=== PATIENT | male | born 1965 | race Caucasian/White ===

== ENCOUNTER 2017-02-21 17:58 | Emergency (ER) | payer BC ==
[2017-02-21] MEDS ORDERED: Sodium Chloride 0.9% 10 ML Syringe FLUSH PRN (18:22)
[2017-02-21] MEDS ORDERED: Aspirin 81 MG Tab.Chew PO ONE (18:22)
[2017-02-21] MEDS ORDERED: Nitroglycerin 0.4 MG Tab.SL SL ONE (18:23)
--- NOTE | 2017-02-21 18:24 | EDM.PDOC ---
ED HPI GENERAL MEDICAL PROBLEM - General Chief Complaint: Chest Pain Stated Complaint: Chest pain Time Seen by Provider: 02/21/17 18:07 Source of Information: Reports: Patient, RN Notes Reviewed History Limitations: Reports: No Limitations - History of Present Illness INITIAL COMMENTS - FREE TEXT/NARRATIVE: 51 year old male presents to the ED today with complaints of near syncope and chest pain. Symptoms started this morning around 9:30 am. He says got out of his truck and suddenly felt lightheaded and like he may "pass out." He also developed substernal chest pain and tightness. He became diaphoretic and clammy for a short time. He says the lightheadedness has been intermittent since the time of onset. His chest pain has been constant. He describes the pain as someone squeezing or sitting on his chest. The chest pain does not radiate. He has no associated nausea or vomiting. He has no neck, back, or jaw pain. He denies any lower extremity edema, swelling, erythema or calf pain. He did not take any aspirin or other medications prior to arrival. No history of PA. He denies drugs or alcohol. PMH: hypertension, high cholesterol. No history of PA Social history: He drinks alcohol frequently. He says most days he drinks beer. He has never smoked but has been around second hand smoke. Family history: He denies parents or siblings with heart disease or PA. Chest Pain Score (Numeric/FACES): 6 - Related Data Allergies Allergy/AdvReac Type Severity Reaction Status Date / Time No Known Allergies Allergy Verified 02/21/17 18:09 Home Meds: Home Meds Hydrochlorothiazide 25 mg PO DAILY 02/21/17 [History] Lisinopril 40 mg PO DAILY 02/21/17 [History] atorvaSTATin [Lipitor] 10 mg PO DAILY 02/21/17 [History] Past Medical History Cardiovascular History: Reports: Hypertension Social & Family History - Recreational Drug Use Recreational Drug Use: No ED ROS GENERAL - Review of Systems Review Of Systems: See Below Constitutional: Reports: Diaphoresis. Denies: Fever, Chills Respiratory: Reports: No Symptoms. Denies: Shortness of Breath, Pleuritic Chest Pain, Cough Cardiovascular: Reports: Chest Pain, Dyspnea on Exertion, Lightheadedness, Other (Near syncope). Denies: Edema, Palpitations, Syncope GI/Abdominal: Reports: No Symptoms. Denies: Abdominal Pain, Nausea, Vomiting Neurological: Reports: No Symptoms ED EXAM, GENERAL - Physical Exam Exam: See Below Exam Limited By: No Limitations General Appearance: Alert, WD/WN, No Apparent Distress Respiratory/Chest: No Respiratory Distress, Lungs Clear, Normal Breath Sounds, No Accessory Muscle Use, Chest Non-Tender, Other (Pain is not reproducible ) Cardiovascular: Normal Peripheral Pulses, Regular Rate, Rhythm, No Edema, No Murmur GI/Abdominal: Normal Bowel Sounds, Soft, Non-Tender, No Distention Extremities: Normal Inspection, Normal Range of Motion, Non-Tender, No Pedal Edema. No: Tamia's Sign, Increased Warmth, Redness Neurological: Alert, Oriented, Normal Cognition Skin Exam: Warm, Dry, Intact EKG INTERPRETATION EKG Date: 02/21/17 Time: 18:12 Rhythm: NSR Rate (Beats/Min): 65 [place]: Normal P-Wave: Present QRS: Normal ST-T: Normal QT: Normal EKG Interpretation Comments: EKG read by Dr. Cleary. Early repolarization pattern. NO acute ischemic changes. Course - Vital Signs Last Recorded V/S: Last Vital Signs Temp 98.5 F 02/21/17 18:10 Pulse 67 02/21/17 18:10 Resp 15 02/21/17 18:10 BP 117/93 H 02/21/17 18:42 Pulse Ox 98 02/21/17 18:10 - Orders/Labs/Meds Orders: Active Orders 24 hr Category Date Time Status Cardiac Monitoring [RC] . DIRECTED Care 02/21/17 18:22 Active EKG Documentation Completion [RC] ASDIRECTED Care 02/21/17 20:41 Active Peripheral IV Care [RC] . DIRECTED Care 02/21/17 18:23 Active CXR [Chest 1V Frontal] [CR] Stat Exams 02/21/17 18:22 Taken Sodium Chloride 0.9% [Saline Flush] Med 02/21/17 18:22 Active 10 ml FLUSH ASDIRECTED PRN Peripheral IV Insertion Adult [OM.PC] Stat Oth 02/21/17 18:22 Ordered EKG 12 Lead [EK] Stat Ther 02/21/17 20:41 Ordered Medication Orders Sodium Chloride (Saline Flush) 10 ml FLUSH ASDIRECTED PRN PRN Reason: Keep Vein Open Last Admin: 02/21/17 18:42 Dose: 10 ml Labs: Laboratory Tests 02/21/17 02/21/17 02/21/17 Range/Units 18:23 18:23 18:23 WBC 8.55 (4.23-9.07) K/mm3 RBC 5.04 (4.63-6.08) M/mm3 Hgb 15.7 (13.7-17.5) gm/L Hct 46.0 (40.1-51.0) % MCV 91.3 (79.0-92.2) fl MCH 31.2 (25.7-32.2) pg MCHC 34.1 (32.2-35.5) g/dl RDW Std Deviation 41.3 (35.1-43.9) fL Plt Count 206 (163-337) K/mm3 MPV 10.2 (9.4-12.3) fl Neut % (Auto) 64.8 (34.0-67.9) % Lymph % (Auto) 24.3 (21.8-53.1) % Wright % (Auto) 10.2 (5.3-12.2) % Eos % (Auto) 0.4 L (0.8-7.0) Baso % (Auto) 0.2 (0.1-1.2) % Neut # (Auto) 5.54 H (1.78-5.38) K/mm3 Lymph # (Auto) 2.08 (1.32-3.57) K/mm3 Wright # (Auto) 0.87 H (0.30-0.82) K/mm3 Eos # (Auto) 0.03 L (0.04-0.54) K/mm3 Baso # (Auto) 0.02 (0.01-0.08) K/mm3 PT 9.3 (8.0-13.0) SECONDS INR 0.86 D-Dimer, Quantitative < 0.19 L (0.19-0.59) mg/L Sodium 140 (136-145) mEq/L Potassium 3.5 (3.5-5.1) mEq/L Chloride 101 (98-107) mEq/L Carbon Dioxide 26 (21-32) mEq/L Anion Gap 16.5 H (5-15) BUN 21 H (7-18) mg/dL Creatinine 1.3 (0.7-1.3) mg/dL Est Cr Clr Drug Dosing 74.27 mL/min Estimated GFR (MDRD) 58 (>60) mL/min BUN/Creatinine Ratio 16.2 (14-18) Glucose 134 H (74-106) mg/dL Calcium 9.8 (8.5-10.1) mg/dL Total Bilirubin 0.4 (0.2-1.0) mg/dL AST 24 (15-37) U/L ALT 53 (16-63) U/L Alkaline Phosphatase 79 (46-116) U/L Troponin I < 0.017 (0.00-0.056) ng/mL Total Protein 7.6 (6.4-8.2) g/dl Albumin 4.1 (3.4-5.0) g/dl Globulin 3.5 gm/dL Albumin/Globulin Ratio 1.2 (1-2) // Range/Units 21:20 WBC (4.23-9.07) K/mm3 RBC (4.63-6.08) M/mm3 Hgb (13.7-17.5) gm/L Hct (40.1-51.0) % MCV (79.0-92.2) fl MCH (25.7-32.2) pg MCHC (32.2-35.5) g/dl RDW Std Deviation (35.1-43.9) fL Plt Count (163-337) K/mm3 MPV (9.4-12.3) fl Neut % (Auto) (34.0-67.9) % Lymph % (Auto) (21.8-53.1) % Wright % (Auto) (5.3-12.2) % Eos % (Auto) (0.8-7.0) Baso % (Auto) (0.1-1.2) % Neut # (Auto) (1.78-5.38) K/mm3 Lymph # (Auto) (1.32-3.57) K/mm3 Wright # (Auto) (0.30-0.82) K/mm3 Eos # (Auto) (0.04-0.54) K/mm3 Baso # (Auto) (0.01-0.08) K/mm3 PT (8.0-13.0) SECONDS INR D-Dimer, Quantitative (0.19-0.59) mg/L Sodium (136-145) mEq/L Potassium (3.5-5.1) mEq/L Chloride (98-107) mEq/L Carbon Dioxide (21-32) mEq/L Anion Gap (5-15) BUN (7-18) mg/dL Creatinine (0.7-1.3) mg/dL Est Cr Clr Drug Dosing mL/min Estimated GFR (MDRD) (>60) mL/min BUN/Creatinine Ratio (14-18) Glucose (74-106) mg/dL Calcium (8.5-10.1) mg/dL Total Bilirubin (0.2-1.0) mg/dL AST (15-37) U/L ALT (16-63) U/L Alkaline Phosphatase (46-116) U/L Troponin I < 0.017 (0.00-0.056) ng/mL Total Protein (6.4-8.2) g/dl Albumin (3.4-5.0) g/dl Globulin gm/dL Albumin/Globulin Ratio (1-2) Meds: Medications Generic Name Dose Route Start Last Admin Trade Name Freq PRN Reason Stop Dose Admin Sodium Chloride 10 ml 02/21/17 18:22 02/21/17 18:42 Saline Flush FLUSH 10 ml ASDIRECTED PRN Administration Keep Vein Open Discontinued Medications Generic Name Dose Route Start Last Admin Trade Name Freq PRN Reason Stop Dose Admin Aspirin 324 mg 02/21/17 18:22 02/21/17 18:41 Aspirin PO 02/21/17 18:23 324 mg ONETIME ONE Administration Nitroglycerin 0.4 mg 02/21/17 18:23 02/21/17 18:42 Nitrostat SL 02/21/17 18:24 0.4 mg ONETIME ONE Administration - Radiology Interpretation Free Text/Narrative:: Chest x-ray, 1 view portable, obtained. Heart size appears WNL. No pulmonary infiltrates or effusions. No bony abnormality. Radiologist interpretation pending. - Re-Assessments/Exams Free Text/Narrative Re-Assessment/Exam: Initial cardiac workup ordered. CBC normal. CMP reveals mildly elevated anion gap and glucose, otherwise unremarkable. D-dimer WNL. Initial troponin and EKG are normal. Chest x-ray is also normal. Patient's history is suggestive of cardiac etiology. He was initially treated with nitroglycerin 0.4mg sl and aspirin 324mg po chewable. His pain improved from 6/10 to 1/10 with nitro. Will keep for 3 hour troponin and repeat EKG. Heart score 4. Risk of MACE 12-16%. 2100 Repeat EKG is normal. No changes from previous EKG. No acute ischemia. 02/21/17 22:20 Repeat troponin is WNL. Patient notified of findings. He and his were thoroughly educated on the results. They understand that while this means he is not having an acute PA, cardiac etiology has not been ruled out. We discussed his risk factors. He has moderate risk for MACE per his HEART score. Will refer him for stress test and have him f/u with Dr. Johnston for the results. He understands that he should return with any return or worsening of symptoms. He states understanding. Departure - Departure Time of Disposition: 22:44 Disposition: Home, Self-Care 01 Condition: Good Clinical Impression: Chest pain of uncertain etiology Instructions: Nonspecific Chest Pain, [id number] Referrals: Anton Johnston MD [Primary Care Provider] - Forms: ED Department Discharge, ED Return to Work/School Form Additional Instructions: Return to ER if your chest pain returns or worsens in any way Take aspirin 325mg of aspirin if you develop recurrence of chest pain Avoid alcohol Avoid exertion or exercise until cleared See Dr. Johnston in follow-up after your stress test. I recommend that you take some time off of work until you have your stress test. - My Orders Last 24 Hours: My Active Orders 02/21/17 18:22 Cardiac Monitoring [RC] . DIRECTED CXR [Chest 1V Frontal] [CR] Stat Sodium Chloride 0.9% [Saline Flush] 10 ml FLUSH ASDIRECTED PRN Peripheral IV Insertion Adult [OM.PC] Stat 02/21/17 18:23 Peripheral IV Care [RC] . DIRECTED 02/21/17 20:41 EKG Documentation Completion [RC] ASDIRECTED EKG 12 Lead [EK] Stat - Assessment/Plan Last 24 Hours: My Active Orders 02/21/17 18:22 Cardiac Monitoring [RC] . DIRECTED CXR [Chest 1V Frontal] [CR] Stat Sodium Chloride 0.9% [Saline Flush] 10 ml FLUSH ASDIRECTED PRN Peripheral IV Insertion Adult [OM.PC] Stat 02/21/17 18:23 Peripheral IV Care [RC] . DIRECTED 02/21/17 20:41 EKG Documentation Completion [RC] ASDIRECTED EKG 12 Lead [EK] Stat
--- NOTE | 2017-02-26 11:27 | CR ---
Chest: Portable view of the chest was obtained. Comparison: No prior study. Heart size and mediastinum are normal. Lungs are clear. Bony structures are grossly intact. Impression: 1. Nothing acute is identified on portable chest x-ray. Diagnostic code #1
== END 2017-02-21 22:43 | disposition home or self-care (01) ==
LOC: JD.ED 17:58
DX: R07.9 Chest pain, unspecified (principal); I10 Essential (primary) hypertension; Z79.899 Other long term (current) drug therapy
CPT/HCPCS: 36415; 71010; 80053; 84484; 85025; 85379; 85610; 93005; 99285; A9270; J7050; 93010; 99284